=== PATIENT | female | born 1960 | race Caucasian/White ===

== ENCOUNTER 2020-05-17 11:25 | Emergency (ER) | payer OTHER ==
[~2020-05-17] VITALS: Ht 152.4 cm; Wt 72.6 kg
== END 2020-05-17 14:19 | disposition home or self-care (01) ==
LOC: ER 11:25
DX: S90.511A Abrasion, right ankle, initial encounter (principal); S80.01XA Contusion of right knee, initial encounter; R60.0 Localized edema; W22.8XXA Striking against or struck by other objects, initial encounter; Y93.89 Activity, other specified; Y92.89 Other specified places as the place of occurrence of the external cause; Y99.8 Other external cause status